=== PATIENT | female | born 1985 | race Caucasian/White ===

== ENCOUNTER 2017-03-18 16:01 | Emergency (ER) | payer MEDICAID ==
[~2017-03-18] VITALS: Ht 160 cm; Wt 143.9 kg
[~2017-03-18 16:01] MED LIST: ACET-1600 PO; CETI1TAB33 PO; CYCL-259 PO; NORT10CA PO; OXYC-306 PO; OXYC5CAP2 PO; PHEN37.5 PO
[2017-03-18] MEDS ORDERED: ACYC-114 PO (16:59)
[2017-03-18 17:02] LABS: BASOPHILS # (AUTO) 0.06 x10^3/uL (0-0.1); BASOPHILS % (AUTO) 1 % (0-1); EOSINOPHILS # (AUTO) 0.25 x10^3/uL (0-0.4); EOSINOPHILS % (AUTO) 2 % (1-7); LYMPHOCYTES # (AUTO) 3.87 x10^3/uL (1-3.4); LYMPHOCYTES % (AUTO) 32 % (22-44); MD NO; MEAN CORPUSCULAR HEMOGLOBIN 25.8 pg (27.0-34.8); MEAN CORPUSCULAR HGB CONC 32.8 g/dL (32.4-35.8); MEAN CORPUSCULAR VOLUME 78.8 fL (80-100); MEAN PLATELET VOLUME 8.3 fL (7.4-10.4); MONOCYTES # (AUTO) 0.92 x10^3/uL (0.2-0.8); MONOCYTES % (AUTO) 8 % (2-9); NEUTROPHILS # (AUTO) 7.09 x10^3/uL (1.8-6.8); NEUTROPHILS % (AUTO) 58 % (42-75); PLATELET COUNT 282 x10^3/uL (130-400); RED BLOOD COUNT 5.36 x10^6/uL (3.82-5.3)
[2017-03-18 17:12] LABS: ANION GAP 6 mmol/L (5-15); CALCIUM 8.7 mg/dL (8.5-10.1); CHLORIDE 104 mmol/L (98-107)
[2017-03-18 17:16] LABS: CREATININE 0.89 mg/dL (0.55-1.02)
[2017-03-18 17:57] LABS: MICROSCOPIC NOT IND
[2017-03-18 18:08] LABS: CULTURE INDICATED? NO
[2017-03-18 18:46] VITALS: BP 144/90
== END 2017-03-18 19:46 | disposition home or self-care (01) ==
LOC: ED 18:45
DX: R33.9 Retention of urine, unspecified (principal)
CPT/HCPCS: 36415; 51102; 51702; 80048; 81003; 82040; 84703; 85025